=== PATIENT | female | born 1985 | race Caucasian/White ===

== ENCOUNTER 2020-08-06 17:34 | Emergency (ER) | payer BC ==
[~2020-08-06] VITALS: Ht 170.2 cm; Wt 68.2 kg
[2020-08-06 17:44] VITALS: BP 111/79; Ht 170.2 cm; Wt 68.2 kg
== END 2020-08-06 19:24 | disposition home or self-care (01) ==
LOC: D.ER 17:34
DX: S50.11XA Contusion of right forearm, initial encounter (principal); S50.01XA Contusion of right elbow, initial encounter; S50.811A Abrasion of right forearm, initial encounter; V17.4XXA Pedal cycle driver injured in collision with fixed or stationary object in traffic accident, initial encounter